=== PATIENT | female | born 1985 | race Caucasian/White ===

== ENCOUNTER 2022-06-18 14:26 | Outpatient (CLI) | payer BC, SELFPAY ==
[2022-06-18 17:25] LABS: Chloride* 107 mmol/L (96-114); Potassium* 4.9 mmol/L (3.6-5.1); Sodium* 141 mmol/L (135-149)
[2022-06-18 17:28] LABS: Blood Urea Nitrogen* 9 mg/dL (5-24); Carbon Dioxide* 27 mmol/L (20-32); Creatinine* 0.7 mg/dL (0.5-1.5); Estimated Glomerular Filt Rate 113 ml/min; Glucose* 78 mg/dL (60-115)
[2022-06-18 17:29] LABS: Calcium* 9.9 mg/dL (8.4-10.6)
== END 2022-06-18 14:27 | disposition home or self-care (01) ==
LOC: NFLDREF 14:27
PROVIDERS: Visit Provider Family Medicine
DX: Z39.2 Encounter for routine postpartum follow-up (principal)
CPT/HCPCS: 80048

== ENCOUNTER 2023-05-16 13:55 | Outpatient (CLI) | payer BC, SELFPAY | END 2023-05-16 13:56 | disposition home or self-care (01) | LOC: LONREF 13:56 | PROVIDERS: Visit Provider Obstetrics & Gynecology | DX: Z01.419 Encounter for gynecological examination (general) (routine) without abnormal findings (principal); Z13.6 Encounter for screening for cardiovascular disorders; Z13.1 Encounter for screening for diabetes mellitus | CPT/HCPCS: 80061; 82947 ==

== ENCOUNTER 2023-05-21 10:42 | Outpatient (CLI) | payer BC, SELFPAY | END 2023-05-21 10:43 | disposition home or self-care (01) | LOC: NFLDREF 05-26 11:55 | PROVIDERS: Visit Provider Nurse Practitioner Family | DX: R19.7 Diarrhea, unspecified (principal) | CPT/HCPCS: 87177; 87209; 87505 ==

== ENCOUNTER 2023-06-17 16:14 | Outpatient (CLI) | payer BC, SELFPAY | END 2023-06-17 16:15 | disposition home or self-care (01) | LOC: NFLDREF 16:16 | PROVIDERS: PCP Family Medicine; Visit Provider Family Medicine | DX: R19.7 Diarrhea, unspecified (principal); Z13.6 Encounter for screening for cardiovascular disorders | CPT/HCPCS: 80061; 84443; 86140 ==

== ENCOUNTER 2024-03-01 15:10 | Outpatient (CLI) | payer BC, SELFPAY ==
--- OUTSIDE RECORDS SUMMARY | 2024-03-01 15:13 | XMS_ITS | Clinical Summary ---
Author Organization [employer] [facility] Address [place], [place] [address] Care Team Providers Care Secretarial Stenographer Name Role Phone Unavailable Primary Care Provider Unavailabl e Active Problems Problem Noted Date Diagnosed Date Intractable headache Social History Tobacco Use Types Packs/Day Years Used Date Smoking Tobacco: Never Assessed Sex and Gender Information Value Date Recorded Sex Assigned at Not on file Gender Identity Not on file Sexual Orientation Not on file Obstetrics History Para Term AB IAB SAB Ectopic Multiple Livin g Live Births 2 1 1 2 2 Date Outcome GA Total Labor Labor/2nd/3rd Weight Sex Type Anes PTL Maddison A1 A5 Name Clin Term Last Filed Vital Signs Vital Sign Reading Time Taken Comments Blood Pressure 108/70 11/23/2021 2:00 PM CDT Pulse 85 11/23/2021 2:00 PM CDT Temperature - - Respiratory Rate - - Oxygen Saturation - - Inhaled Oxygen Concentration - - Weight - - Height - - Body Mass Index - - Plan of Treatment Not on file
--- OUTSIDE RECORDS SUMMARY | 2024-03-01 15:13 | XMS_ITS | Clinical Summary ---
Author Organization [facility] Address [address] [place] [address] Care Team Providers Care Upper Cutter Name Role Phone Jeffery Carlos PA-C Primary Care Provider [phone] Source Comments You are receiving this document as you are listed as the primary care provider,follow-up provider, or the patient has been referred to you for consultation.This is in compliance with the Medicare and[facility] EHR Incentive Program,which states Providers who transition their patient to another setting of careor provider of care or refers their patient to another provider of care shouldprovide summary care record for each transition of care or referral. [place] Joy[employer] TechnologyGuadalupe County [email or web address] Allergies No known active allergies Medications Medication Sig Dispensed Refills Start Date End Date Status mometasone (ELOCON) 0.1 % creamIndications: Dyshidrotic eczema Apply topically daily. 45 g 1 05/12/2019 Active insulin isophane (NOVOLIN N) 100 UNIT/ML injectionIndicati ons:Diabetes Mellitus Inject 14 Units subcutaneously every evening. Indications: Diabetes Mellitus 10 mL 3 10/12/2021 Active Additional Information Patient not taking.Reported on 06/08/2022 insulin syringe-needle U-100 1ml 31g x 15/64 Inject 1 Each subcutaneously daily. 100 Each 10/12/2021 Active Additional Information Patient not taking.Reported on 06/08/2022 Multiple Vitamin Essential Take 1 Tablet by mouth daily. 30 Tablet 11 10/16/2021 Active [place]-3 300 MG CAPS Shakley brand 10/16/2021 Active Probiotic Product (UP4 PROBIOTICS) CHEW daily 10/16/2021 Active aspirin 81 MG chewable tablet Chew and swallow 1 Tablet (81 mg) by mouth daily. 100 Tablet 3 10/16/2021 Active Additional Information Patient not taking.Reported on 06/08/2022 ALBUterol sulfate HFA 108 (90 Base) MCG/ACT inhalerIndication s:Viral URI with cough Inhale 1-2 Puffs every 4 hours as needed for Wheezing. 18 g 2 06/09/2022 Active Active Problems Problem Noted Date Diagnosed Date Dyshidrotic eczema 05/12/2019 Comments Yes Immunizations Name Administration Dates Next Due Chicken Pox - History of Illness 07/04/1993 DTP 12/07/1985 HepA Adult (19+ yrs) 10/27/2018,10/28/2017 HepB, Unspecified Formulation 09/18/1996, 997,05/22/1996 MMR 03/19/2020,12/07/1985,07/24/1985 OPV, Trivalent (Orimune or tOPV) 12/07/1985 OPV, Unspecified Formulation 12/07/1985 TDAP (BOOSTRIX) 05/29/2013 Td (7+ yrs) 05/22/1996 Td Adult, Unspecified Formulation 05/22/1996 Tdap 09/21/2021,01/30/2020,05/19/2007 Typhoid (Vivotif, Oral) 10/28/2017 Family History Medical History Relation Name Comments Coronary Artery Disease Father Diabetes, Type I Father started ins ulin right away Diabetes, Type II Mother now on ins ulin Hypertension Mother Thyroid Disorder Mother Diabetes, Type II Maternal Grandfather Cancer, Breast Paternal Aunt Relation Name Status Comments Father Mother Maternal Grandfather Paternal Aunt Social History Tobacco Use Types Packs/Day Years Used Date Smoking Tobacco: Never Smokeless Tobacco: Never Alcohol Use Standard Drinks/Week Comments Not Currently 7 (1 standard drink = 0.6 oz pur e alcohol) PHQ-2 Answer Date Recorded PHQ-2 Score 0 06/08/2022 Comments Yes Sex and Gender Information Value Date Recorded Sex Assigned at Not on file Gender Identity Not on file Sexual Orientation Not on file Last Filed Vital Signs Vital Sign Reading Time Taken Comments Blood Pressure 126/86 06/08/2022 2:12 PM VARNISHER PLASTICOATER Pulse 91 06/08/2022 2:12 PM VARNISHER PLASTICOATER Temperature 37.3 ??C (99.2 ??F) 06/08/2022 1 :59 PM VARNISHER PLASTICOATER Respiratory Rate - - Oxygen Saturation 95% 06/08/2022 1:5 9 PM VARNISHER PLASTICOATER Inhaled Oxygen Concentration - - Weight 96.6 kg (213 lb) 11/03/2021 3:36 PM CDT Patient reported Height 156.8 cm (5' 1.75) 11/03/2021 3 :06 PM CDT Patient reported Body Mass Index 39.27 11/03/2021 3:06 PM CDT Plan of Treatment Health Maintenance Due Date Last Done Comments IPV (Polio) (2 of 3 - 4-dose series) 01/04/1986 12/07/1985, 12/07/1985 Cervical Cancer Screening 04/26/20202016, 06/30/2013, 06/30/2013 Adult Preventive Visit 05/12/2021 05/12/2019, 2016 COVID-19 Vaccine ( season) 2023 Influenza (#1) 2024 DTaP/Tdap/Td (7 - Tdap) 09/22/2031 09/22/19 22, 01/30/2020, 05/29/2013, Additional history exists Zoster/Shingles (1 of 2) 2034 HepB Completed 09/18/1996, 07/05, 05/22/1996 HIV Screening (Preventive Services) Completed 05/02/2015 Hep C Screening (Preventive Services) Completed 05/02/2015 HepA Completed 10/27/2018, 10/28/2017 HPV Vaccine Aged Out No longer eligi ble based on patient's age to complete this topic Hib Aged Out No longer eligi ble based on patient's age to complete this topic MCV4 Aged Out No longer eligi ble based on patient's age to complete this topic Pneumococcal Aged Out No longer eligi ble based on patient's age to complete this topic Procedures Procedure Name Priority Date/Time Associated Diagnosis Comments ANATOMICAL PATH LIQUID BASED Routine 04/26/2017 12:12 PM CDT HIV ANTIBODY Routine 05/02/2015 10:40 AM CDT Screen for STD (sexually transmitted disease) HEPATITIS C ANTIBODY, WITH REFLEX Routine 05/02/2015 10:40 AM CDT Screen for STD (sexually transmitted disease) from Last 3 Months or Most Recently Relevant to Health Maintenance Results * Pap Smear (04/26/2017 12:12 PM CDT) 04/26/2017 12:1 2 PM CDT Narrative PRATIBHA KEMP - 05/02/2017 11:52 AM CDT FINAL GYNECOLOGICAL CYTOLOGY REPORT Pathology #: [id number] ?Date Obtained: 04/26/2017 ? Date Received: 04/27/2017 INTERPRETATION/RESULTS: Negative for Intraepithelial Lesion or Malignancy. SPECIMEN ADEQUACY: Satisfactory for Evaluation. ??No endocervical cells/transformation zone component present. Verified on 05/02/2017 ??by KRYSTINA YEE(ASCP) (electronic signature) CLINICAL NOTES: ?Abnormal bleeding: No, LMP: iud, Menstrual status: None Apply, ?Current form of therapy: IUD LIQUID BASED PAP SMEAR SPECIMEN TYPE: ?ROUTINE CERVICAL PAP TEST PLEASE NOTE: The pap smear is a screening test designed to aid in the detection of cervical cancer and its precursor lesions. It is not a diagnostic procedure and should not be used as the sole means of detecting cervical cancer. Both false-positive and false-negative reports may occur. Performed at [address] [address] Jeffery Carlos PA-C LAB_[address] [place] [address] [place] [address] * HIV ANTIBODY (05/02/2015 10:40 AM CDT) HIV 1/HIV 2 Non-React Non-Reacti ve HP CONVERSION 05/02/2015 10:4 0 AM CDT 05/02/2015 3:54 PM CDT Narrative HP CONVERSION - 05/02/2015 11:42 PM CDT Performed at [address] [address] CLIA number [id number] Jeffery Carlos PA-C LAB_1 Performing Organization Address [facility] de Phone Number HP CONVERSION * Hepatitis C Antibody, with Reflex (05/02/2015 10:40 AM CDT) Hepatitis C Antibody Non-React Non-Reacti ve HP CONVERSION 05/02/2015 10:4 0 AM CDT 05/02/2015 3:54 PM CDT Narrative HP CONVERSION - 05/02/2015 7:50 PM CDT Performed at [facility], [address] [place] [address] CLIA number [id number] Jeffery Carlos PA-C LAB_1 Performing Organization Address [facility] de Phone Number HP CONVERSION from Last 3 Months or Most Recently Relevant to Health Maintenance Care Teams Upper Cutter Relationship Specialty Start Date End Date Jeffery Carlos PA-C [address] [place] [address] PCP - General 06/30/13
== END 2024-03-01 15:11 | disposition home or self-care (01) ==
PROVIDERS: Visit Provider Nurse Practitioner Family
DX: R53.83 Other fatigue (principal); G62.9 Polyneuropathy, unspecified; Z13.0 Encounter for screening for diseases of the blood and blood-forming organs and certain disorders involving the immune mechanism; Z13.29 Encounter for screening for other suspected endocrine disorder
CPT/HCPCS: 82728; 84443

== ENCOUNTER 2024-03-31 00:17 | Emergency (ER) | payer BC, SELFPAY ==
[2024-03-31 00:26] VITALS: BP 111/89; PULSE 78; RESP 16; TEMP 36.6; O2SAT 99; BMI 43.5
--- NOTE | 2024-03-31 00:40 | CRLHL7_ITS ---
For Patients: As a result of the Century Cures Act, medical imaging exams and procedure reports are released immediately into your electronic medical record. You may view this report before your referring provider. If you have questions, please contact your health care provider. INDICATION: Injury, 5th metatarsal pain. TECHNIQUE: Right foot 3 view. COMPARISON: Right calcaneus radiographs 03/01/2024. FINDINGS: There is an acute nondisplaced transverse fracture through the proximal diaphysis of the 5th metatarsal. Questionable subtle linear lucency in the distal fibula on the AP view. No dislocation. Joint spaces are preserved. Small plantar calcaneal spur. Soft tissues are unremarkable. IMPRESSION: 1. Acute nondisplaced fracture of the proximal 5th metatarsal. 2. Questionable nondisplaced fracture of the distal fibula. Consider dedicated ankle radiographs. Dictated by Gabrielle Amezcua MD @ 03/31/2024 1:11:57 AM (Electronically Signed)
--- NOTE | 2024-03-31 00:47 | ED_ITS ---
HPI - General Adult General Date Seen: 03/31/24 Chief complaint: Extremity Pain/Injury, Lower Stated complaint: fell left foot felt pop Time Seen by Provider: 03/31/24 00:37 Source: patient Mode of arrival: wheelchair Limitations: no limitations History of Present Illness HPI narrative: Patient is a 38-year-old here with her significant other for evaluation of her left foot. She missed a step and slid down a couple steps. She said she heard a pop, pain with weight-bearing since then in the area of the 5th metatarsal. No ankle or knee pain. Denies other injuries or complaints. Related Data Home Medications ?Medication ?Instructions ?Recorded ?Confirmed doxylamine succinate 25 mg tablet 25 mg PO QHS PRN 06/18/22 03/01/24 (Unisom (doxylamine)) melatonin 5 mg capsule 10 mg PO .hs 06/17/23 03/01/24 Fiber PO 03/01/24 03/01/24 dicyclomine 20 mg tablet 20 mg PO QID 03/01/24 03/01/24 Previous Rx's ?Medication ?Instructions ?Recorded mometasone 0.1 % topical cream 1 applic topical QDAY #45 grams 06/18/22 albuterol sulfate 90 mcg/actuation 2 puff inhalation Q4H PRN 11/09/23 aerosol inhaler shortness of breath or wheezing #6.7 grams omeprazole 20 mg capsule,delayed 20 mg PO QDAY #90 caps 12/16/23 release Allergies Allergy/AdvReac Type Severity Reaction Status Date / Time No Known Drug Allergies Allergy Verified 03/01/24 14:32 PFSH PFS Medical History Neuropathy ?G62.9 - Polyneuropathy, unspecified (ICD-10) Otitis media ?H66.90 - Otitis media, unspecified, unspecified ear (ICD-10) Wheezing ?R06.2 - Wheezing (ICD-10) GERD (gastroesophageal reflux disease) ?K21.9 - Gastro-esophageal reflux disease without esophagitis (ICD-10) Diarrhea ?R19.7 - Diarrhea, unspecified (ICD-10) History of delivery (03/18/20) ?Z87.51 - Personal history of pre-term labor (ICD-10) Gestational diabetes ?O24.419 - Gestational diabetes mellitus in , unspecified control (ICD-10) History of cervical dysplasia ?Z87.410 - Personal history of cervical dysplasia (ICD-10) Atopic dermatitis ?L20.9 - Atopic dermatitis, unspecified (ICD-10) Placental abruption ?O45.90 - Premature separation of placenta, unspecified, unspecified trimester (ICD-10) Surgical History History of loop electrical excision procedure (LEEP) (2003) ?Z98.890 - Other specified postprocedural states (ICD-10) Status post emergency section (11/10/21) ?Z98.891 - History of uterine scar from previous surgery (ICD-10) Family History Father Diabetes Heart disease Depression Mother Diabetes High blood pressure High cholesterol Depression Maternal Grandmother Stroke Son Seizure disorder Maternal Grandfather Diabetes Aunt Breast cancer Paternal Grandmother Colon cancer Social History Narrative: , two kids, nonsmoker, teacher, social ETOH Highest level of school completed/degree received: Master's degree Smoking Status: Never smoker Are you now , , , , never or living with a partner: Social isolation score (0-1 are the most socially isolated patients): 1 Little interest or pleasure in doing things: not at all Feeling down, depressed, or hopeless: not at all Do you think of yourself as: straight/heterosexual Gender Identity: female Are you currently sexually active: Yes In the past 12 months, how many sex partners have you had: one Are you using contraception or practicing any form of control: Yes (Partner vasectomy) Exam Narrative: Exam Narrative: Vital signs reviewed In general, alert, well-appearing woman. She has her left foot wrapped in an ice pack. Extremities: Examination of the left lower extremity shows no obvious deformity or swelling. She does not have any tenderness of the knee, proximal fibula, lateral or medial malleoli. There is some bruising noted over the proximal 5th metatarsal and some tenderness in this region. Skin: Warm dry well perfused. Const: Vital Signs, click to edit/add: Vital Signs - 24 hr 03/31/24 00:26 Temperature 97.9 F Pulse Rate [Pulse Oximeter] 78 Respiratory Rate 16 Blood Pressure [Ri ght Upper Arm] 111/89 Pulse Oximetry 99 Oxygen Delivery Me thod Room Air Documenting provider has reviewed patient's vital signs: yes Course Course ED Course: X-rays of the left foot by my review show a fracture at the base of the 5th metatarsal. Final radiology read as follows:Patient: SHANE RAMAN Facility: [facility] Site . Site : 1985 Study: XRay-Extremity Left FOOT 3V-03/31/2024 1:03:35 AM Ordering Physician: Bianca Mckeon Final Report: INDICATION: Injury, 5th metatarsal pain. TECHNIQUE: Right foot 3 view. COMPARISON: Right calcaneus radiographs 03/01/2024. FINDINGS: There is an acute nondisplaced transverse fracture through the proximal diaphysis of the 5th metatarsal. Questionable subtle linear lucency in the distal fibula on the AP view. No dislocation. Joint spaces are preserved. Small plantar calcaneal spur. Soft tissues are unremarkable. IMPRESSION: 1. Acute nondisplaced fracture of the proximal 5th metatarsal. 2. Questionable nondisplaced fracture of the distal fibula. Consider dedicated ankle radiographs. Dictated by Gabrielle Amezcua MD @ 03/31/2024 1:11:57 AM I did not see the radiology read tell after she was splinted, I think I will hold off on dedicated ankle films as she will need orthopedic follow-up and can have them done at that time if she has ankle pain. On my exam she had no tenderness over the distal fibula, so my clinical suspicion of fracture is low. She was placed in a short-leg posterior splint, will have her on crutches, nonweightbearing. Orthopedic follow-up, advised that she will not likely need 6 weeks or so in a cast. Ibuprofen and/or Tylenol as needed, she would like to have the option of something stronger to take if needed, oxycodone, 4 tablets given from [facility]. Vital Signs Vital signs: Initial Vital Signs Temperature 97.9 F 03/31/24 00:26 Temperature Source Temporal Artery Scan 03/31/24 00:26 Pulse Rate 78 03/31/24 00:26 Respiratory Rate 16 03/31/24 00:26 Blood Pressure 111/89 03/31/24 00:26 Blood Pressure Mean 96 03/31/24 00:26 Blood Pressure Position Sitting 03/31/24 00:26 Pulse Oximetry 99 03/31/24 00:26 Oxygen Delivery Method Room Air 03/31/24 00:26 Vital Signs Temperature 97.9 F 03/31/24 00:26 Pulse Rate 78 03/31/24 00:26 Respiratory Rate 16 03/31/24 00:26 Blood Pressure 111/89 03/31/24 00:26 Pulse Oximetry 99 03/31/24 00:26 Oxygen Delivery Method Room Air 03/31/24 00:26 Temperature 97.9 F 03/31/24 00:26 Pulse Rate 78 03/31/24 00:26 Respiratory Rate 16 03/31/24 00:26 Blood Pressure 111/89 03/31/24 00:26 Pulse Oximetry 99 03/31/24 00:26 Oxygen Delivery Method Room Air 03/31/24 00:26 Discharge Plan Discharge Clinical Impression: Closed fracture of fifth metatarsal bone Patient Disposition: Home, Self-Care Condition: Stable Instructions: Crutch Instructions (ED), Foot Fracture in Adults (ED) Additional Instructions: Nonweightbearing. Ibuprofen and/or Tylenol as needed for pain. Elevate as able. Ice as needed. Orthopedic follow-up next week, call [phone] to schedule. Prescriptions: No Action Unisom (doxylamine) 25 mg tablet 25 mg PO QHS PRN mometasone 0.1 % cream 1 applic topical QDAY Qty: 45 1RF melatonin 5 mg capsule 10 mg PO .hs albuterol sulfate 90 mcg/actuation HFA aerosol inhaler 2 puff inhalation Q4H PRN (Reason: shortness of breath or wheezing) Qty: 6.7 3RF dicyclomine 20 mg tablet 20 mg PO QID Fiber PO omeprazole 20 mg capsule,delayed release(DR/EC) 20 mg PO QDAY Qty: 90 1RF Follow Up/Referrals: Kylee Oliveros, SALES/MARKETING [Primary Care Provider] - Stand Alone Forms: [facility] Info Instructions
--- OUTSIDE RECORDS SUMMARY | 2024-03-31 00:49 | XMS_ITS | Clinical Summary ---
Author Organization [facility] Address [address] [place] [address] Care Team Providers Care Frame Bander Name Role Phone Jeffery Carlos PA-C Primary Care Provider [phone] Source Comments You are receiving this document as you are listed as the primary care provider,follow-up provider, or the patient has been referred to you for consultation.This is in compliance with the Medicare and[facility] EHR Incentive Program,which states Providers who transition their patient to another setting of careor provider of care or refers their patient to another provider of care shouldprovide summary care record for each transition of care or referral. [employer] - [facility] HospitalThe Grounds Keeper Allergies No known active allergies Medications Medication [...] mouth daily. 30 Tablet 11 10/16/2021 Active [place]-3 300 MG CAPS Shakley brand 10/16/2021 Active [...] Comments Blood Pressure 126/86 06/08/2022 2:12 PM CHIEF TECHNOLOGY OFFICER Pulse 91 06/08/2022 2:12 PM CHIEF TECHNOLOGY OFFICER Temperature 37.3 ??C (99.2 ??F) 06/08/2022 1 :59 PM CHIEF TECHNOLOGY OFFICER Respiratory Rate - - Oxygen Saturation 95% 06/08/2022 1:5 9 PM CHIEF TECHNOLOGY OFFICER Inhaled Oxygen Concentration - - Weight 96.6 [...] 05/12/2021 05/12/2019, 2016 COVID-19 Vaccine ( season) 2024 Influenza (#1) 2024 DTaP/Tdap/Td (7 - Tdap) [...] CDT FINAL GYNECOLOGICAL CYTOLOGY REPORT Pathology #: [id number] ?Date Obtained: 04/26/2017 ? Date Received: 04/27/2017 [...] and false-negative reports may occur. Performed at [address] [address] Jeffery Carlos PA-C LAB_[address] [place] [address] [place] [address] * HIV ANTIBODY (05/02/2015 10:40 AM CDT) HIV 1/HIV 2 Non-React Non-Reacti ve HP CONVERSION 05/02/2015 10:4 0 AM CDT 05/02/2015 3:54 PM CDT Narrative HP CONVERSION - 05/02/2015 11:42 PM CDT Performed at [address] [address] CLIA number [id number] Jeffery Carlos PA-C LAB_1 Performing Organization Address [facility] de Phone Number HP CONVERSION * Hepatitis C Antibody, with Reflex (05/02/2015 10:40 AM CDT) Hepatitis C Antibody Non-React Non-Reacti ve HP CONVERSION 05/02/2015 10:4 0 AM CDT 05/02/2015 3:54 PM CDT Narrative HP CONVERSION - 05/02/2015 7:50 PM CDT Performed at [facility], [address] [place] [address] CLIA number [id number] Jeffery Carlos PA-C LAB_1 Performing Organization Address [facility] de Phone Number HP CONVERSION from Last 3 Months or Most Recently Relevant to Health Maintenance Care Teams Frame Bander Relationship Specialty Start Date End Date Jeffery Carlos PA-C [address] [place] [id number] PCP - General 06/30/13
--- OUTSIDE RECORDS SUMMARY | 2024-03-31 00:49 | XMS_ITS | Clinical Summary ---
Author Organization [employer] [facility] Address [place] [address] Care Team Providers Care Supervisor Jewelry Department Name Role Phone Unavailable Primary Care Provider [...]
== END 2024-03-31 01:25 | disposition home or self-care (01) ==
PROVIDERS: Emergency Provider Emergency Medicine; PCP Nurse Practitioner Family
DX: S92.352A Displaced fracture of fifth metatarsal bone, left foot, initial encounter for closed fracture (principal)
CPT/HCPCS: 73630; 99283; 99284

== ENCOUNTER 2024-05-28 14:01 | Outpatient (CLI) | payer BC, SELFPAY ==
--- OUTSIDE RECORDS SUMMARY | 2024-05-28 14:13 | XMS_ITS | Clinical Summary ---
Author Organization [facility] Address [address] [place] [address] Care Team Providers Care Insulator Technician Name Role Phone Jeffery Carlos PA-C Primary Care Provider [phone] Source Comments You are receiving this document as you are listed as the primary care provider,follow-up provider, or the patient has been referred to you for consultation.This is in compliance with the Medicare and[facility] Hospitalcact EHR Incentive Program,which states Providers who transition their patient to another setting of careor provider of care or refers their patient to another provider of care shouldprovide summary care record for each transition of care or referral. [facility] HospitalAOL Allergies No known active allergies Medications Medication [...] mouth daily. 30 Tablet 11 10/16/2021 Active [place]-3 300 MG CAPS Shakley brand 10/16/2021 Active [...] Comments Blood Pressure 126/86 06/08/2022 2:12 PM ELEVATING GRADER OPERATOR Pulse 91 06/08/2022 2:12 PM ELEVATING GRADER OPERATOR Temperature 37.3 C (99.2 F) 06/08/2022 1:59 PM ELEVATING GRADER OPERATOR Respiratory Rate - - Oxygen Saturation 95% 06/08/2022 1:5 9 PM ELEVATING GRADER OPERATOR Inhaled Oxygen Concentration - - Weight 96.6 [...] on patient's age to complete this topic RSV Aged Out No longer eligi ble based [...] CDT) 04/26/2017 12:1 2 PM CDT Narrative PN SOFT - 05/02/2017 11:52 AM CDT FINAL GYNECOLOGICAL CYTOLOGY REPORT Pathology #: [id number] Date Obtained: 04/26/2017 Date Received: 04/27/2017 INTERPRETATION/RESULTS: Negative for Intraepithelial Lesion or Malignancy. SPECIMEN ADEQUACY: Satisfactory for Evaluation. No endocervical cells/transformation zone component present. Verified on 05/02/2017 by KRYSTINA YEE(ASCP) (electronic signature) CLINICAL NOTES: Abnormal bleeding: No, LMP: iud, Menstrual status: None Apply, Current form of therapy: IUD LIQUID BASED PAP SMEAR SPECIMEN TYPE: ROUTINE CERVICAL PAP TEST PLEASE NOTE: The pap smear is a screening test designed to aid in the detection of cervical cancer and its precursor lesions. It is not a diagnostic procedure and should not be used as the sole means of detecting cervical cancer. Both false-positive and false-negative reports may occur. Performed at [address] [address] Jeffery Carlos PA-C LAB_1 Performing Organization Address City/State/[facility] Co de Phone Number [address] [address] * HIV ANTIBODY (05/02/2015 10:40 AM CDT) HIV 1/HIV 2 Non-React Non-Reacti ve HP CONVERSION 05/02/2015 10:4 0 AM CDT 05/02/2015 3:54 PM CDT Narrative HP CONVERSION - 05/02/2015 11:42 [place] [address] CLIA number [id number] Jeffery Carlos PA-C LAB_1 HP CONVERSION * Hepatitis C Antibody, with Reflex (05/02/2015 10:40 AM CDT) Hepatitis C Antibody Non-React Non-Reacti ve HP CONVERSION 05/02/2015 10:4 0 AM CDT 05/02/2015 3:54 PM CDT Narrative HP CONVERSION - 05/02/2015 7:50 PM CDT Performed at [address] [address] CLIA number [id number] Jeffery Carlos PA-C LAB_1 Performing Organization Address City/[facility]/ZIP Co de Phone Number HP CONVERSION from Last 3 Months or Most Recently Relevant to Health Maintenance Care Teams Insulator Technician Relationship Specialty Start Date End Date Jeffery Carlos PA-C [address] [place] [address] PCP - General 06/30/13
--- OUTSIDE RECORDS SUMMARY | 2024-05-28 14:13 | XMS_ITS | Clinical Summary ---
Author Organization [facility] [facility] Address [place], [place] [address] Care Team Providers Care Utility Helicopter Repairer Name Role Phone Unavailable Primary Care Provider [...]
[2024-05-31 04:38] LABS: HPV Source Cervical; HPV, High Risk by TMA Not Detected
== END 2024-05-28 14:02 | disposition home or self-care (01) ==
PROVIDERS: PCP Nurse Practitioner Family; Visit Provider Obstetrics & Gynecology
DX: Z12.4 Encounter for screening for malignant neoplasm of cervix (principal); Z11.51 Encounter for screening for human papillomavirus (HPV)
CPT/HCPCS: 87624; 87625; 88141; 88142

== ENCOUNTER 2024-08-14 17:14 | Outpatient (CLI) | payer BC, SELFPAY ==
--- NOTE | 2024-08-14 17:20 | CRLHL7_ITS ---
For Patients: As a result of the Century Cures Act, medical imaging exams and procedure reports are released immediately into your electronic medical record. You may view this report before your referring provider. If you have questions, please contact your health care provider. BILATERAL SCREENING MAMMOGRAM WITH COMPUTER-AIDED DETECTION AND TOMOSYNTHESIS TECHNIQUE: CC and MLO views were obtained. These mammographic images have been obtained using full-field digital technique. These mammographic images were interpreted with the benefit of computer-aided detection. Breast Tomosynthesis was used in this interpretation. COMPARISON FILM: Baseline. FINDINGS: The breasts are heterogeneously dense, which may obscure small masses. IMPRESSION: There is no radiographic evidence for malignancy. ASSESSMENT: BI-RADS Category 1: Negative RECOMMENDATION: Routine screening mammogram in 1 year. A lay language report of this examination will be provided to the patient. Faustino Mosquera M.D. Diagnostic Radiologist [email or web address] Transcribed: 2:16 [email or web address] silver/Dictated by: Faustino Mosquera MD @ 08/17/2024 9:55:00 AM (Electronically Signed)
== END 2024-08-14 17:15 | disposition home or self-care (01) ==
LOC: MAMMO 17:14
PROVIDERS: PCP Nurse Practitioner Family; Visit Provider Obstetrics & Gynecology
DX: Z12.31 Encounter for screening mammogram for malignant neoplasm of breast (principal); R92.333 Mammographic heterogeneous density, bilateral breasts
CPT/HCPCS: 77063; 77067

== ENCOUNTER 2024-08-20 07:56 | Outpatient (CLI) | payer BC, SELFPAY | END 2024-08-20 07:57 | disposition home or self-care (01) | LOC: NFLDREF 08-22 06:33 | PROVIDERS: PCP Nurse Practitioner Family; Referring Provider Nurse Practitioner Family; Visit Provider Obstetrics & Gynecology | DX: Z13.220 Encounter for screening for lipoid disorders (principal); Z13.0 Encounter for screening for diseases of the blood and blood-forming organs and certain disorders involving the immune mechanism; Z13.29 Encounter for screening for other suspected endocrine disorder | CPT/HCPCS: 80061; 82728; 84443 ==

== ENCOUNTER 2024-09-11 15:50 | Outpatient (CLI) | payer BC, SELFPAY | END 2024-09-11 15:51 | disposition home or self-care (01) | LOC: NFLDREF 09-14 01:29 | PROVIDERS: PCP Nurse Practitioner Family; Referring Provider Nurse Practitioner Family; Visit Provider Obstetrics & Gynecology | DX: R79.89 Other specified abnormal findings of blood chemistry (principal) | CPT/HCPCS: 84439; 84481; 86376; 86800 ==

== ENCOUNTER 2025-05-25 19:17 | Emergency (ER) | payer BC, SELFPAY ==
--- OUTSIDE RECORDS SUMMARY | 2023-11-04 05:08 | XMS_ITS | Continuity of Care Document ---
Author Organization [facility] Address [address] [address] [place] [address] Phone Care Team Providers Care Doffer Name Role Phone Duane Gimenez MD Unavailable Unavailabl e Advance Directives Directive Yes / No Effective Date File Name No Information Encounters Encounter Description Practice Location Reason(s) For Visit Diagnoses Date Provider Providers Copied on Encounter [facility], [address] [address], [place], [place], [id number], [place] tel:[phone] [facility] No Information David Zepeda. [address] [facility], [facility] [address], [place], [place], [id number], [place]. tel:[phone] Family History Family Member Type Diagnosis Age At Onset No Information Payers Payer name Insurance type Covered democrat ID Authoriza tion(s) No Information Social History Type Description Quantity Date Captured Comments Sex Female Smoking Status No Information Chief Complaint And Reason For Visit No Information Reason For Referral Reason For Referral No Information History Of Present Illness Encounter Date Complaint History Of Prese nt Illness No Information Functional Status Date Functional Assessmen t No Information Instructions Date Instruction Additional Infor mation No Information Assessments Type Assessment Date No Information Patient Care Teams Name Effective Dates (start - stop) Status Members No Information
--- OUTSIDE RECORDS SUMMARY | 2023-11-04 05:08 | XMS_ITS | Continuity of Care Document ---
Author Organization [facility] Address [address] [address] [place] [address] Phone Care Team Providers Care Medical Office Secretary Name Role Phone Duane Gimenez MD Unavailable Unavailabl e Advance Directives Directive Yes / No Effective Date File Name No Information Encounters Encounter Description Practice Location Reason(s) For Visit Diagnoses Date Provider Providers Copied on Encounter [facility], [address] [address], [place], [place], [id number], [place] tel:[phone] [facility] [place] No Information David Zepeda. [address] [facility], [facility] [address], [place], [place], [id number], [place]. tel:[phone] Family History Family Member Type Diagnosis Age At Onset No Information Payers Payer name Insurance type Covered alliance party ID Authoriza tion(s) No Information Social History [...]
--- OUTSIDE RECORDS SUMMARY | 2024-02-22 01:50 | XMS_ITS | Continuity of Care Document ---
Author Organization [facility] Address [address] [address] [place] [address] Phone Care Team Providers Care Residential Child Care Counselor Name Role Phone Cristy Torres MD Unavailable Unavailable Allergies, Adverse Reactions, Alerts Substance Reaction Status Criticality No Known Allergies Active No Inform ation Medications Medication Instructions Dosage Effective Dates (start - stop) Status Comments omeprazole 20 mg tablet,delayed release take 1 capsule by oral route every day 1 capsule - Active Unisom SleepGels 50 mg capsule take 1 capsule by oral route every bedtime 50 MG - Active Fiber (calcium polycarbophil) 625 mg tablet take 2 tablet by oral route every day 2 tablet - Active dicyclomine 10 mg capsule take 1 capsule by oral route 3 times every day as needed 10 MG - Active dicyclomine 20 mg tablet take 1 tablet by oral route 4 times every day as needed for diarrhea 20 MG - Active melatonin 10 mg capsule take 1 tablets by oral route every bedtime 1 tablets - Active Probiotic 10 billion cell capsule take 1 capsule by oral route every day 1 capsule - Active multivitamin tablet take 1 tablet by oral route every day 1 tablet - Active OMEPRAZOLE (unknown strength) as directed Not Available - No Longer Active Procedures Procedure Date Established Level 4 Routine Serum Collection New Level 4 Advance Directives Directive Yes / No Effective Date File Name No Information Encounters Encounter Description Practice Location Reason(s) For Visit Diagnoses Date Provider Providers Copied on Encounter Established Level 4 [facility], [address] [address], [place], [place], [id number], [place] tel:[phone] [facility] GI Symptoms or Concerns (chief complaint) Change in bowel habitChronic GERD 4 Brian Muniz. [address] [facility], [address] [address], [place], [place], [id number] , [place]. tel: [phone] Referring Provider: Referral Self, USE FOR SELF REFERRALS. [facility], [address] [address], [place], [place], [id number], [place] tel:[phone] [facility] No Information 4 Brian Muniz. [address] [facility], [address], [id number] , [place]. tel: [phone] [facility], [address] [address], [place], [place], [id number], [place] tel:[phone] [facility] Change in bowel habit 4 Brian Muniz. [address] [facility], [address], [id number] , [place]. tel: [phone] Referring Provider: Referral Self, USE FOR SELF REFERRALS. [facility], [address] [address], [place], [place], [address], [place] tel:[phone] [facility] No Information 4 Jone Lozano. [address] [facility], [address], [id number] , [place]. tel: [phone] New Level 4 [facility], [address] [address], [place], [place], [address], [place] tel:[phone] [facility] GI Symptoms or Concerns (chief complaint) Change in bowel habitChronic GERD 4 Brian Muniz. [address] [facility], [address], [id number] , [place]. tel:[phone] Referring Provider: Faustino Naranjo MD, [address] [place] [address], [address]. tel:[phone] [facility], [address] [address], [place], [place], [address], [place] tel:[phone] [facility] No Information 4 David Zepeda. [address] [facility], [address], [place], [place], [address] , [place]. tel:[phone] Family History Family Member Type Diagnosis Age At Onset Mother Problem (finding) Thyroid disorder Father Problem (finding) Family history of Ulcer ative colitis Brother Problem (finding) Asthma Father Problem (finding) Alcoholism Immunizations Vaccine Date Status Comments tetanus toxoid, reduced diphtheria toxoid, and acellular pertussis vaccine, adsorbed administered Note: [facility] bi-direct ional interface ; Source: Other Registry measles, mumps and rubella virus vaccine administered Note: [facility] bi-direct ional interface ; Source: Other Registry tetanus toxoid, reduced diphtheria toxoid, and acellular pertussis vaccine, adsorbed administered Note: [facility] bi-direct ional interface ; Source: Other Registry Havrix administered Note: [facility] bi-d irectional interface ; Source: Other Registry Havrix administered Note: [facility] bi-d irectional interface ; Source: Other Registry typhoid vaccine, live, oral administered Note: [facility] bi-directional interface ; Source: Other Registry tetanus toxoid, reduced diphtheria toxoid, and acellular pertussis vaccine, adsorbed administered Note: [facility] bi-direct ional interface ; Source: Other Registry hepatitis B vaccine, unspecified formulation administered Note: [facility] bi-di rectional interface ; Source: Other Registry hepatitis B vaccine, unspecified formulation administered Note: [facility] bi-di rectional interface ; Source: Other Registry hepatitis B vaccine, unspecified formulation administered Note: [facility] bi-di rectional interface ; Source: Other Registry diphtheria, tetanus toxoids and pertussis vaccine administered Note: [facility] bi-direct ional interface ; Source: Other Registry measles, mumps and rubella virus vaccine administered Note: [facility] bi-direct ional interface ; Source: Other Registry Oral Polio Vaccine, Unspecif ied formulation administered Note: [facility] bi-direct ional interface ; Source: Other Registry measles, mumps and rubella virus vaccine administered Note: [facility] bi-direct ional interface ; Source: Other Registry Payers Payer name Insurance type Covered libertarian ID Authortran pratt(s) [employer] [id number] Social History Type Description Quantity Date Captured Comments Alcohol Use Details Unknown Caffeine Use Details Unknown Tobacco Use Status No Information Smoking Status No Information Sex Female Chief Complaint And Reason For Visit From encounter dated '02/22/2024 07:50'. GI Symptoms or Concerns (chief complaint). Description: This is a very pleasant 38-year-old female who presents for follow-up. Patient was last seen in clinic on 11/05/2023 for change in bowel habits. Patient states the symptoms have improved significantly. She states that bowel habits have become much firmer in nature. She still has bowel movements 2-3 times per day. She has 2 bowel movements inthe morning and may have another 1 later in the day. Bowel movements have become more formed in nature and are less loose and watery. She has tried fiber twice daily as recommended during last officevisit. She states that this did not help her symptoms significantly. Patient also has tried a lactose-free diet which did improve her symptoms. She did not try dicyclomine as her symptoms were somewhat well controlled. She denies any abdominal pain, nausea, vomiting. There is no significant family history of colon cancer. Her acid reflux is well- controlled with omeprazole 20 milligrams once daily. Patient has had stool studies checked by her primary care physician which have been negative. She has also had negative TSH and CRP level. Patient has tried probiotic in the past which has not been helpful as well. Celiac panel tested recently has been normal. Reason For Referral Reason For Referral No Information Plan Of Treatment Date Type Action Status Referral Ordered: follow-up visit 6 Months Appointment date/timeframe: 6 Months ordered Referral Ordered: Celiac: TTG IgA + Total IgA Appointment date/timeframe: First Available ordered History Of Present Illness Encounter Date Complaint History Of Prese nt Illness GI Symptoms or Concerns This is a very pleasant 38-year-old female who presents for follow-up. Patient was last seen in clinic on 11/05/2023 for change in bowel habits. Patient states the symptoms have improved significantly. She states that bowel habits have become much firmer in nature. She still has bowel movements 2-3 times per day. She has 2 bowel movements in the morning and may have another 1 later in the day. Bowel movements have become more formed in nature and are less loose and watery. She has tried fiber twice daily as recommended during last office visit. She states that this did not help her symptoms significantly. Patient also has tried a lactose-free diet which did improve her symptoms. She did not try dicyclomine as her symptoms were somewhat well controlled. She denies any abdominal pain, nausea, vomiting. There is no significant family history of colon cancer. Her acid reflux is well-controlled with omeprazole 20 milligrams once daily. Patient has had stool studies checked by her GI Symptoms or Concerns This is a very pleasant 38-year-old female who presents as a new patient for changes in bowel habits. Patient notes change in bowel habits for the past 7 months. Patient notes frequent diarrhea. Patient states the diarrhea has improved in frequency but the consistency continues to be changed. Patient notes consistency is somewhat loose and soft in nature. She may have some firm bowel movements which break apart easily. Patient notes that she goes less often, almost 2-3 times per day. Previously she was going multiple times per day to the bathroom. Patient denies any blood in her stool. Patient denies any abdominal pain or lower abdominal cramping pain. Patient denies any nausea vomiting. There is no recent weight loss. There is no blood in the stool. Patient denies any family history of colon cancer. Patient does have 1 grandparent with ulcerative colitis. Patient also reports acid reflux. She was using Tums twice per day but has been switched to omeprazole 20 milligrams once Functional Status Date Functional Assessmen t No Information Instructions Date Instruction Additional Infor pavel -continue lactose fr ee diet-start dicyclomine twice daily-may reduce fiber to once daily-defer colonoscopy or further workup at this point (we will consider SIBO breath testing or trial of low FODMAP diet if needed in the future)-follow up in 6 months Related to Change in bowel habit -check celiac panel- increase fiber supplementation to twice daily-2-3 weeks of lactose free diet-may stop probiotic as not helpful-start bentyl 20 mg every 6 hrs as needed for diarrhea -continue omeprazole-follow up in 3 months. will proceed with colonoscopy if sx continue Related to Change in bowel habit Assessments Type Assessment Date assessment Change in bowel habit 4 assessment Chronic GERD impression 1. This is a pleasan t 38-year-old female who presents with changes in her bowel habits, mostly looser bowel movements. Symptoms have become much better since starting a lactose-free diet. Symptoms are most likely due to dietary intolerance or functionally in nature. IBD or colonic malignancy is much less likely, as patient denies having any alarm symptoms at this point.2. Chronic acid reflux disease is very well controlled on once daily omeprazole. Patient Care Teams Name Effective Dates (start - stop) Status Members No Information
--- OUTSIDE RECORDS SUMMARY | 2024-02-22 01:50 | XMS_ITS | Continuity of Care Document ---
Author Organization [facility] Address [address] [address] [place] [address] Phone Care Team Providers Care X Ray Control Equipment Repairer Name Role Phone Cristy Torres MD Unavailable [...] Providers Copied on Encounter Established Level 4 [facility], [address] [address], [place], [place], [id number], [place] tel:[phone] [facility] GI Symptoms or Concerns (chief complaint) Change in bowel habitChronic GERD 4 Brian Muniz. [address] [facility], [address] [address], [place], [place], [id number] , [place]. tel: [phone] Referring Provider: Referral Self, USE FOR SELF REFERRALS. [facility], [address] [address], [place], [place], [address], [place] tel:[phone] [facility] No Information 4 Brian Muniz. [address] [facility], [address], [id number] , [place]. tel: [phone] [facility], [address] [address], [place], [place], [address], [place] tel:[phone] [facility] Change in bowel habit 4 Brian Muniz. [address] [facility], [address], [id number] , [place]. tel: [phone] Referring Provider: Referral Self, USE FOR SELF REFERRALS. [facility], [address] [address], [place], [place], [address], [place] tel:[phone] [facility] No Information 4 Jone Lozano. [address] [facility], [address], [id number] , [place]. tel: [phone] New Level 4 [facility], [address] [address], [place], [place], [id number], [place] tel:[phone] [facility] GI Symptoms or Concerns (chief complaint) Change in bowel habitChronic GERD 4 Brian Muniz. [address] [facility], [address], [id number] , [place]. tel:[phone] Referring Provider: Faustino Naranjo MD, [address] [place] [address], [address]. tel:[phone] [facility], [address] [address], [place], [place], [address], [place] tel:[phone] [facility] No Information 4 David Zepeda. [address] [facility], [address], [place], [place], [address] , [place]. tel:[phone] Family History Family Member Type Diagnosis Age [...] Polio Vaccine, Unspecif ied formulation administered Note: [facility] bi-direct ional interface ; Source: Other Registry measles, mumps and rubella virus vaccine administered Note: [facility] bi-direct ional interface ; Source: Other Registry Payers Payer name Insurance type Covered republican ID Authortran pratt(s) [employer] [id number] Social History Type Description Quantity Date Captured [...]
--- OUTSIDE RECORDS SUMMARY | 2025-05-25 19:19 | XMS_ITS | Clinical Summary ---
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
--- OUTSIDE RECORDS SUMMARY | 2025-05-25 19:19 | XMS_ITS | Clinical Summary ---
Author Organization [facility] Address [address] , [address] [place] [address] Phone Care Team Providers Care Cattle Dehorner Name Role Phone MedRec, MedRec Unavailable Conditions or Problems Problem Name Problem Code Onset Date Status Entry Date Provider Comment Standard Description Annotate Arm pain, right 614739831 (SNOMED CT) Active Prieto Solorzano MD Pain in right arm Pain in left arm [id number] (SNOMED CT) Active Prieto Solorzano MD Pain in left arm Medications No information available. Medications Administered No information available. Allergies, Adverse Reactions, Alerts No information available. Results Date Name Value Unit Range Flag Description Internal Other: Authorizatio n - OBS [email or web address] Yes Authoriza tion: Release of Information - Authorize [facility] - Payment and Healthcare Operations ROIAUTHOTHER Yes Authoriz ation: Release of Information - Authorize Others/Insurance - Payment and Healthcare Operations HIECONSENT Yes Consent To Release information to the Health Information Exchange (HIE) [email or web address] Yes Authorizat ion: Authorization for [facility] to leave messages, voicemail, send text messages, send emails AUTHRELHCARE Yes Authoriz ation: Release/Retrieval of Information to/from Healthcare Facilities, Pharmacy Benefit Payers and Providers AUTHPRIVPRAC Yes Authoriz ation: Notice of privacy practices AUTHBENEFIT Yes Authoriza tion: Assignment of Benefits and Payment Agreement Plan of Care No information available. Procedures Code Procedure Name Date Entry Date CPT-82269 Nerve Conduction 9-10 studies [id number] EMG with NCS (5+ muscles) - 2 limbs 04/10 Vital Signs No information available. Immunizations No information available. Advance Directives No information available.
[2025-05-25 19:21] VITALS: BP 136/94; PULSE 99; RESP 16; TEMP 36.3; O2SAT 98; BMI 47.3
--- NOTE | 2025-05-25 19:54 | CRLHL7_ITS ---
For Patients: As a result of the Century Cures Act, medical imaging exams and procedure reports are released immediately into your electronic medical record. You may view this report before your referring provider. If you have questions, please contact your health care provider. INDICATION: Lateral malleolus pain after fall TECHNIQUE: Three views left ankle FINDINGS/IMPRESSION: Transverse distal fibular fracture without significant displacement. Lateral soft tissue swelling. Dictated by Ginette Dumont MD @ 05/25/2025 8:30:10 PM (Electronically Signed)
--- NOTE | 2025-05-25 20:13 | ED.FALL ---
HPI - Fall General Date Seen: 05/25/25 Chief Complaint: Fall/Minor Trauma Stated Complaint: Left Ankle Injury Time Seen by Provider: 05/25/25 19:18 Source: patient Mode of arrival: ambulatory Limitations: no limitations History of Present Illness HPI Narrative: Patient is a 39-year-old female presenting to the emergency department for left lateral malleolus pain. She states she was walking when she tripped and fell about 18:00 hurting her left ankle. She denies any lightheadedness or dizziness before or after the fall. Denies hitting her head. States her only pain is to her left ankle currently. She initially had some mild pain to her dorsal left wrist that she states has since resolved. Denies any numbness of the foot. No other concerns noted at this time. Related Data Home Medications ?Medication ?Instructions ?Recorded ?Confirmed doxylamine succinate 25 mg tablet 25 mg PO QHS PRN 06/18/22 05/09/25 (Unisom (doxylamine)) melatonin 5 mg capsule 10 mg PO .hs 06/17/23 05/09/25 Previous Rx's ?Medication ?Instructions ?Recorded albuterol sulfate 90 mcg/actuation 2 puff inhalation Q4H PRN 05/10/25 aerosol inhaler shortness of breath or wheezing #6.7 grams cyclobenzaprine 5 mg tablet 5 mg PO QHS PRN muscle spasm #14 05/10/25 tabs mometasone 0.1 % topical cream 1 applic topical QDAY #45 grams 05/10/25 omeprazole 20 mg capsule,delayed 20 mg PO QDAY #90 caps 05/10/25 release Allergies Allergy/AdvReac Type Severity Reaction Status Date / Time No Known Drug Allergies Allergy Verified 05/09/25 07:08 Review of Systems Narrative: Pertinent systems reviewed and were negative unless stated in HPI PFSH PFSH Medical History History of delivery (03/18/20) ?Z87.51 - Personal history of pre-term labor (ICD-10) Gestational diabetes (2020) ?O24.419 - Gestational diabetes mellitus in , unspecified control (ICD-10) History of cervical dysplasia ?Z87.410 - Personal history of cervical dysplasia (ICD-10) Placental abruption ?O45.90 - Premature separation of placenta, unspecified, unspecified trimester (ICD-10) Surgical History History of vaginal delivery (03/18/20) [place] teeth extracted ?K08.409 - Partial loss of teeth, unspecified cause, unspecified class (ICD-10) History of loop electrical excision procedure (LEEP) (2003) ?Z98.890 - Other specified postprocedural states (ICD-10) Status post emergency section (11/10/21) ?Z98.891 - History of uterine scar from previous surgery (ICD-10) Family History Father Diabetes Heart disease Depression Mother Diabetes High blood pressure High cholesterol Depression Thyroid disease Hip fracture Maternal Grandmother Stroke Son Seizure disorder Maternal Grandfather Diabetes Aunt Breast cancer Paternal Grandmother Colon cancer Social History Narrative: , two kids, nonsmoker, teacher, social ETOH What is your current living situation?: I presently have a place to live Problems where you live: no known problems In the past 12 months, utilities in danger of being shut off: no In past 12 months, lack of transportation kept you from medical appts, meetings, work, or getting things needed for daily living: no In the past 12 mos, have been you worried that your food would run out before you had money to buy more?: never true In the past 12 mos, the food you bought just didn't last and you didn't have money to buy more?: never true Highest level of school completed/degree received: Master's degree Smoking Status: Never smoker Are you now , , , , never or living with a partner: Social isolation score (0-1 are the most socially isolated patients): 1 How often does anyone, including family, friends and others, physically hurt you: never How often does anyone, including family, friends and others, insult or talk down to you: never How often does anyone, including family, friends and others, threaten you with harm: never How often does anyone, including family, friends and others, scream or curse at you: never Do you think of yourself as: straight/heterosexual Gender Identity: female Are you currently sexually active: Yes In the past 12 months, how many sex partners have you had: one Are you using contraception or practicing any form of control: Yes (Partner vasectomy) Exam Narrative: Exam Narrative: Const: Well-nourished, Well-developed, in mild distress Eyes: PERRL, no conjunctival injection, and symmetrical lids HENT: Atraumatic external nose and ears. Moist mucous membranes. CV: Dorsalis pedis pulse 2 +bilaterally, cap refill is under 2 seconds. MSK: Decreased range of motion to left ankle secondary to pain. Mild swelling noted around the left ankle. Tenderness noted to the posterior and anterior aspect of the left lateral malleolus. No tenderness noted to rest of lower extremity. Mild tenderness noted to left wrist. Skin: Warm, Dry. No rashes or lesions. Neuro: Normal Muscle tone, No focal neurological deficits. Psych: Awake, Alert, & Oriented x3. Appropriate mood and affect. Const: Vital Signs, click to edit/add: Vital Signs - 24 hr 05/25/25 19:21 Temperature 97.4 F L Pulse Rate [Left P ulse Oximeter] 99 Respiratory Rate 16 Blood Pressure [Ri ght Upper Arm] 136/94 H Pulse Oximetry 98 Oxygen Delivery Me thod Room Air Course Vital Signs Vital signs: Initial Vital Signs Temperature 97.4 F L 05/25/25 19:21 Temperature Source Temporal Artery Scan 05/25/25 19:21 Pulse Rate 99 05/25/25 19:21 Pulse Rhythm Regular 05/25/25 19:21 Respiratory Rate 16 05/25/25 19:21 Blood Pressure 136/94 H 05/25/25 19:21 Blood Pressure Mean 108 H 05/25/25 19:21 Blood Pressure Position Sitting 05/25/25 19:21 Pulse Oximetry 98 05/25/25 19:21 Oxygen Delivery Method Room Air 05/25/25 19:21 Vital Signs Temperature 97.4 F L 05/25/25 19:21 Pulse Rate 99 05/25/25 19:21 Respiratory Rate 16 05/25/25 19:21 Blood Pressure 136/94 H 05/25/25 19:21 Pulse Oximetry 98 05/25/25 19:21 Oxygen Delivery Method Room Air 05/25/25 19:21 Temperature 97.4 F L 05/25/25 19:21 Pulse Rate 99 05/25/25 19:21 Respiratory Rate 16 05/25/25 19:21 Blood Pressure 136/94 H 05/25/25 19:21 Pulse Oximetry 98 05/25/25 19:21 Oxygen Delivery Method Room Air 05/25/25 19:21 MDM - Fall MDM Narrative Medical decision making narrative: Patient is a 39-year-old female presenting to the emergency department for left ankle pain. Sounds like this was mechanical fall. Will do an x-ray of the left ankle. She declines any pain medication at this time. I spoke to her about possible x-ray of her left wrist and she declines that at this time to as she states the pain is rather minimal now. This seems reasonable and very unlikely it is fractured. X-ray of the ankle does show a transverse distal fibular fracture with minimal displacement as interpreted by myself and the radiologist. A posterior slab size splint was placed. She will be prescribed oxycodone be instymeds. She will follow-up with orthopedics. She is agreeable to this plan. States she has crutches at home. Diagnosis: Left lateral malleolus fracture Imaging Data Left ankle x-ray: Attestation: I have reviewed the pertinent imaging results. Radiologist's impression: Transverse distal fibular fracture without significant displacement. Lateral soft tissue swelling. Dictated by Ginette Dumont MD @ 05/25/2025 8:30:10 PM Discharge Plan Discharge Clinical Impression: Ankle fracture, left Qualifiers: Encounter type: initial encounter Fracture type: closed Qualified Code(s): S82.892A - Other fracture of left lower leg, initial encounter for closed fracture Patient Disposition: Home, Self-Care Condition: Stable Instructions: Ankle Fracture (DC) Additional Instructions: Take ibuprofen and Tylenol for pain. If that is not helping you can use the oxycodone. Follow-up with [facility]. Call them at . Return to emergency department for new or worsening symptoms. Prescriptions: No Action Unisom (doxylamine) 25 mg tablet 25 mg PO QHS PRN melatonin 5 mg capsule 10 mg PO .hs cyclobenzaprine 5 mg tablet 5 mg PO QHS PRN (Reason: muscle spasm) Qty: 14 0RF albuterol sulfate 90 mcg/actuation HFA aerosol inhaler 2 puff inhalation Q4H PRN (Reason: shortness of breath or wheezing) Qty: 6.7 3RF mometasone 0.1 % cream 1 applic topical QDAY Qty: 45 1RF omeprazole 20 mg capsule,delayed release(DR/EC) 20 mg PO QDAY Qty: 90 3RF Follow Up/Referrals: Poonam Bingham MD [Primary Care Provider, BULK [employer]ATION AGENT] Stand Alone Forms: [facility] Info Instructions Procedures Orthopedic Splinting/Casting Left ankle: Side: left Lower Extremity Injury Location: ankle Lower extremity immobilizer: posterior splint Applied by clinician: /DO Conclusion: patient tolerated procedure
--- OUTSIDE RECORDS SUMMARY | 2025-05-25 20:17 | XMS_ITS | Clinical Summary ---
Author Organization [facility] Address [address] , [address] [place] [address] Phone Care Team Providers Care Hogshead Opener Name Role Phone MedRec, MedRec Unavailable Conditions or Problems Problem Name Problem Code Onset Date Status Entry Date Provider Comment Standard Description Annotate Arm pain, right [id number] (SNOMED CT) Active Prieto Solorzano MD Pain in right arm Pain in left arm [id number] (SNOMED CT) Active Prieto Solorzano MD Pain [...] Procedures Code Procedure Name Date Entry Date CPT-13301 Nerve Conduction 9-[address] [facility]-[id number] EMG with NCS (5+ muscles) - 2 limbs 04/10 Vital Signs No information available. Immunizations No information available. Advance Directives No information available.
== END 2025-05-25 21:02 | disposition home or self-care (01) ==
PROVIDERS: Emergency Provider Student in an Organized Health Care Education/Training Program; PCP Obstetrics & Gynecology
DX: S82.62XA Displaced fracture of lateral malleolus of left fibula, initial encounter for closed fracture (principal); W01.0XXA Fall on same level from slipping, tripping and stumbling without subsequent striking against object, initial encounter; Y93.01 Activity, walking, marching and hiking
CPT/HCPCS: 29505; 29515; 73610; 99283; 99284

== ENCOUNTER 2025-06-03 13:46 | Outpatient (CLI) | payer BC, SELFPAY | END 2025-06-03 13:47 | disposition home or self-care (01) | PROVIDERS: PCP Nurse Practitioner Family; Visit Provider Obstetrics & Gynecology | DX: Z01.419 Encounter for gynecological examination (general) (routine) without abnormal findings (principal); I10 Essential (primary) hypertension | CPT/HCPCS: 80048; 80061; 82728; 84439; 84443; 84481; 86376; 86800 ==

== ENCOUNTER 2025-07-03 10:07 | Outpatient (CLI) | payer BC, SELFPAY ==
--- NOTE | 2025-07-10 14:22 | W.PM.SLEEP ---
Sleep Study Details Details Interpreting Provider: Kj Date of Sleep Study: 07/03/25 Sleep Study Details: STUDY TYPE:? Home ? BMI:? 45.34 ORDERING PROVIDER:Leanne Oliveros INDICATION:? Concern for sleep apnea ? SLEEP SUMMARY:? 511 minutes monitored RESPIRATORY SUMMARY:? AHI 18.3 Low oxygen 73 4.5% of study oxygen less than 90% Snoring 87.4% PERIODIC LIMB MOVEMENTS OF SLEEP:? Not recorded CARDIAC:? Range 53-116, mean 76.3 beats per minute IMPRESSION:? Moderate obstructive sleep apnea, elevated BMI. RECOMMENDATION: Weight loss is recommended. AutoSet CPAP pressure 4-17 with close follow-up.
== END 2025-07-03 10:08 | disposition home or self-care (01) ==
LOC: SLEEP 10:08
PROVIDERS: PCP Nurse Practitioner Family; Visit Provider Nurse Practitioner Family
DX: G47.33 Obstructive sleep apnea (adult) (pediatric) (principal)
CPT/HCPCS: 95806